=== PATIENT | male | born 1995 | race Hispanic/Latino ===

== ENCOUNTER 2022-08-15 21:44 | Emergency (ER) | payer SELFPAY ==
[2022-08-15] MEDS ORDERED: Fluorescein Opthalmic Strip ONE (22:53)
[2022-08-15] MEDS ORDERED: Proparacaine 0.5% Opth 15 ML BOT ONE (22:53)
[2022-08-15] MEDS ORDERED: Boostrix 0.5 ML (Tdap) VIAL (>/=7 yrs of age) ONE (23:44)
[2022-08-15] MEDS ORDERED: HYDROcodone/Acetaminophen 5/325 mg Tablet ONE (23:45)
== END 2022-08-16 | disposition home or self-care (01) ==
LOC: ERS 21:44
DX: T15.01XA Foreign body in cornea, right eye, initial encounter (principal); F17.200 Nicotine dependence, unspecified, uncomplicated; Z23 Encounter for immunization
CPT/HCPCS: 65220; 90471; 90715